=== PATIENT | female | born 1935 | race Caucasian/White ===

== ENCOUNTER → 2017-07-30 | Day surgery (SDC) | payer MEDICARE ==
[~2017-07-30] VITALS: Ht 154.9 cm; Wt 65.0 kg
[~2017-07-30] MED LIST: 0.9% Sodium Chloride 1,000 ML IV PRN; AMLO10TA3 PO; ASPI325T32 PO; ATEN25TA PO; ATOR20TA PO; FURO10SO2 PO; GLPZ5T PO; LOSA100T29 PO; Lactated Ringer's 1,000 ML IV ONE; OMEP20TA86 PO; Sodium Chloride LOK Flush 10 mL Syringe IV PRN; fentaNYL-PF 50 mCg/mL 2 mL Inj IVPUSH PRN
[2017-07-30 13:29] VITALS: BP 143/63; PULSE 52; RESP 16; O2SAT 99
--- NOTE | 2017-07-30 14:32 | PCM.ENDEGD ---
EGD Date of Service: Jul 30, 2017 Physician Sumeet Calderon MD Pre Procedure Diagnosis: Abdominal pain and weight loss Post Procedure Dx & Findings: Antral deformity fundic polyps Procedure Esophagogastroduodenoscopy PROCEDURE IN DETAIL: After proper sedation, Olympus video endoscope was inserted into patient's mouth and esophagus was successfully intubated. Scope introduced esophagus. Esophagus showed normal shiny whitish mucosa consistent with squamous cell component. Z line was intact at 40 cm from the incisors. Scope further advanced to the stomach. Stomach showed normal shiny mucosa with normal appearing rugae folds without any ulcer mass erosion. However in the antrum there were some evidence of deformity edema and redness consistent with antritis. Biopsies obtained. Multiple other polyps are noted. Largest was about 1-1/2 cm. Sampling biopsies obtained. Most were 5 mm or less. Cardia fundus body antrum pylorus were all visualized. Retroflexion was done. Stomach was easily inflated and deflatable using air. Scope further advanced to the distal duodenum. Duodenum revealed normal villous structures with normal appearing folds without any mass ulcer erosion. 5 biopsies are taken for rule out celiac disease for weight loss. Impression Antral deformity with antritis Fundic polyps Recommendation Await biopsies If she continues to lose weight and EGD bx does not explain her weight loss, consider doing a colonoscopy. Follow up in GI clinic. Presedation Assessment Risks and Benefits Informed consent was obtained from the patient after all risks and benefits including but not limited to drug reaction, infection, pain, bleeding, perforation, as well as alternatives were discussed. Patient monitoring Continuous pulse oximetry, cardiac monitoring, blood pressure monitoring, IV access, and oxygen at 2L per nasal cannula. Periprocedural Fentanyl: Fentanyl 100mcg Incrementally Midazolam: Midazolam 4mg Incrementally Complications There were no periprocedural complications identified. Post Procedure Plan Post Procedure Recommendations 1. Restrict activities today. 2. Resume normal activities in the morning. 3. Resume medications. 4. GERD behavioral modification: - Avoid fatty, acidic, spicy, large meals - Do not lie down after meals - Do not eat or drink anything for at least 2 1/2 hours before going to bed at night - Discontinue tobacco and alcohol - Decrease or avoid caffeine - Avoid chocolate and mints - Decrease weight - Avoid aspirin and non steroidal anti-inflammatory agents (NSAID) such as Aleve, Advil, Mobic, Naproxen, Ibuprofen, etc 5. Add proton pump inhibitor. Take 30 minutes before 1st meal of the day. 6. Patient informed of normal post procedure side effects as bloating, drowsiness, blood streaking in the stool 7. If gastric biopsy reveal H.pylori, continue with appropriate treatment 8. If small bowel biopsy reveals celiac, continue with appropriate treatment 9. Please don't hesitate to call me with any questions Sumeet Calderon MD Jul 30, 2017 14:32
[2017-07-30 14:38] VITALS: BP 122/56; PULSE 46; RESP 12; O2SAT 64
[2017-07-30 14:45] VITALS: BP 122/56; PULSE 49; RESP 12; O2SAT 99
[2017-07-30 14:47] VITALS: BP 116/58; PULSE 50; RESP 12; O2SAT 96
--- NOTE | 2017-08-01 15:40 | PATH ---
SURGICAL PATHOLOGY Attending Physician:Sumeet Calderon M.D. CASE STATUS: Signed Out PATIENT NAME: KARI GILMORE PID: [id number] : 1935 DATE COLLECTED:07/30/2017 00:00 SPECIMEN: 1: Duodenum, Biopsy 2: Gastric, Biopsy 3: Stomach, Polyp, Biopsy CLINICAL HISTORY: 1). DUODENAL BIOPSY 2). GASTRIC BIOPSY 3). FUNDAL POLYP BIOPSY FINAL DIAGNOSIS: 1. Duodenum, Biopsy: Superficial portions of duodenal mucosa with no diagnostic abnormality. Negative for active inflammation, features of sprue, dysplasia, and malignancy. 2. Gastric Biopsy: Portions of gastric body-type and antral-type mucosa with features of reactive gastropathy. No definite H. pylori organisms identified by H&E stain. Immunohistochemistry studies pending; results will be reported as an addendum. Negative for intestinal metaplasia, dysplasia, and malignancy. 3. Fundal Polyp, Biopsy: Portions of fundic gland polyp; negative for intestinal metaplasia, dysplasia, and malignancy. ICD10: K31.7 GROSS DESCRIPTION: The specimen is received in three formalin filled containers labeled with the patient's name. 1). The specimen is labeled "duodenal" and consists of 2 portions of tissue which aggregate to 0.2 x 0.2 x 0.2 CM. The specimen is entirely submitted in cassette 1A. 2). The specimen is labeled "gastric" and consists of 3 portions of tissue which aggregate to 0.2 x 0.2 x 0.2 CM. The specimen is entirely submitted in cassette 2A. 3). The specimen is labeled "fundal polyp" and consists of 3 portions of tissue which aggregate to 0.2 x 0.2 x 0.2 CM. The specimen is entirely submitted in cassette 3A. 07/31/2017DC ICD-9 CODES: CPT CODES: 1: 61932 2: 51703, 23763 3: 02373 PROCEDURE/ADDENDA: Addendum SPI Addendum Diagnosis This is an addendum to reports the results of Helicobacter pylori IHC. Addendum Comment An immunohistochemical stain was performed to evaluate for Helicobacter organisms and is NEGATIVE. A control stain showed appropriate reactivity. * This test was developed and its performance characteristics determined by [employer]. It has not been cleared or approved by the [place]. Food and Drug Administration. The FDA has determined that such clearance or approval is not necessary. This test is used for clinical purposes. It should not be regarded as investigational or for research. Electronically Signed Out Amrita Sharma MD Electronically Signed Out Deena De La Fuente MD [facility] Pathology [facility] [address], [place] [address] Technical component performed at [facility], [address], [place], [address]
== END | disposition home or self-care (01) ==
LOC: END 00:38
PROVIDERS: ATTEND Internal Medicine
DX: K31.7 Polyp of stomach and duodenum (principal); R10.9 Unspecified abdominal pain; K29.50 Unspecified chronic gastritis without bleeding; Z79.82 Long term (current) use of aspirin; Z79.899 Other long term (current) drug therapy; Z87.891 Personal history of nicotine dependence
CPT/HCPCS: 43239; 88305; 88342; G0500; J2250; J3010; J7030